=== PATIENT | female | born 1995 ===

== ENCOUNTER 2019-07-07 21:03 | Emergency (ER) | payer SELFPAY ==
[~2019-07-07] VITALS: Ht 149.9 cm; Wt 47.6 kg
[2019-07-07] MEDS ORDERED: ALBU90OI INH (21:25)
== END 2019-07-07 22:40 | disposition left against medical advice (07) ==
LOC: ER 21:03
DX: Z53.21 Procedure and treatment not carried out due to patient leaving prior to being seen by health care provider (principal)